=== PATIENT | female | born 1990 | race Caucasian/White ===

== ENCOUNTER 2017-09-12 07:17 | Emergency (ER) | payer BC ==
[~2017-09-12] VITALS: Ht 167.6 cm; Wt 121.0 kg
[2017-09-12 07:18] VITALS: Ht 167.6 cm; Wt 121.0 kg
[2017-09-12] MEDS ORDERED: SODIUM CHLORIDE 0.9% 1000ML 1,000 ML IV STA (07:53)
[2017-09-12 08:03] LABS: BASO % 0.3 %; BASO ABS # 0.03 K/uL (0-0.2); EOS % 1.2 %; EOS ABS # 0.13 K/uL (0-0.5); HEMATOCRIT 42.5 % (37-47); HEMOGLOBIN 14.8 g/dL (12.0-16.0); IG# 0.04 K/uL (0.00-0.02); LYMPH ABS # 2.11 K/uL (1.2-3.4); MEAN CELL VOLUME 85.7 fL (80-100); MEAN CORPUSCULAR HEMOGLOBIN 29.8 pg (25-34); MEAN CORPUSCULAR HGB CONC 34.8 g/dl (32-36); MEAN PLATELET VOLUME 9.7 fL (7.4-10.4); MONO ABS # 0.85 K/uL (0.11-0.59); NEUT % 70.1 %; PLATELET COUNT 212 K/uL (130-400); RED CELL DISTRIBUTION WIDTH CV 14.4 % (11.5-14.5); RED CELL DISTRIBUTION WIDTH SD 45.1 fL (36.4-46.3); WHITE BLOOD COUNT 10.56 K/uL (4.8-10.8)
[2017-09-12 08:09] LABS: ALBUMIN 3.7 gm/dl (3.4-5.0); CREATININE 0.83 mg/dl (0.60-1.20); POTASSIUM 3.8 mmol/L (3.5-5.1)
[2017-09-12 08:12] LABS: TOTAL PROTEIN 7.8 gm/dl (6.4-8.2)
--- NOTE | 2017-09-12 09:19 | DIAGNOSTIC IMAGING REPORT ---
ULTRASOUND RIGHT UPPER QUADRANT ABDOMEN CLINICAL HISTORY: Right upper quadrant abdominal pain. COMPARISON STUDY: Abdominal CT dated 01/14/2016. TECHNIQUE: Real-time, grayscale, and color flow sonography of the right upper quadrant of the abdomen was performed. Images are reviewed in the transverse and longitudinal planes. FINDINGS: Liver: The liver is normal in size and echotexture. There is no intrahepatic biliary ductal dilatation. The main portal vein is patent. Gallbladder: A tiny focus of adenomyomatosis is suggested in the fundal region. The gallbladder is otherwise normal in appearance. No gallstones are identified. There is no gallbladder wall thickening or pericholecystic fluid. A sonographic Marquez's sign is reportedly absent. The common bile duct measures up to 0.5 cm in diameter. Pancreas: Visualized portions of the pancreatic head and body are normal in appearance. Right kidney: Survey images of the right kidney demonstrate normal size and echotexture. There is no hydronephrosis. Ascites: None. IMPRESSION: Unremarkable sonographic assessment of the right upper quadrant. No gallstones are identified. Electronically signed by: Raj Mackenzie M.D. 09/12/2017 9:18 AM Dictated Date/Time: 09/12/2017 9:16 AM
[2017-09-12 09:30] VITALS: TEMP 36.7
[2017-09-12 10:23] VITALS: BP 115/63; PULSE 74; O2SAT 98
--- NOTE | 2017-09-12 17:15 | EMERGENCY ROOM VISIT NOTE ---
ED Visit Note First contact with patient: 07:24 Chief Complaint: Abdominal pain History of Present Illness: Ms. Servin is a 27 year-old female complaining of bilateral upper quadrant abdominal pain. Historically patient reports she has had chronic abdominal pain for the last 2- 3 years. She has been seen in the emergency department multiple times as well as her primary care provider and no cause has been identified for her pain. CTs of the abdomen have been negative, pelvic ultrasounds have been negative and a right upper quadrant ultrasound showed. Patient reports that her primary care provider has diagnosed this as GERD. She has been using Tums to control her discomfort. She reports the last year the pain seemed to improved but over the last 2 months it has returned. He reports the pain has been intermittent but is daily. She describes this cyclic pain of lasting for approximately 5-10 minutes and then self resolving. Patient reports this morning she was driving to work and she started developing bilateral upper quadrant and mid quadrant pain. She describes her discomfort as something "pushing against" her upper abdomen. She currently rates her discomfort 6/10. Her pain is radiating into her thoracic back. She has not identified any aggravating or alleviating factors related to the pain. She hasn 't taken any medications for pain prior to arrival at the hospital. She currently denies any nausea or vomiting but did report on Saturday when she was having similar symptoms that she did vomit. Additionally she has noted that she is does not have lamin diarrhea but feels like her stools are looser than normal. Patient denies fevers, chills, sweats, skin eruptions, skin color changes, upper respiratory tract symptoms, shortness of breath, chest pain, nausea, vomiting, diarrhea, constipation, rectal bleeding, black/tarry stools, urinary symptoms, hematuria, vaginal bleeding, vaginal discharge, back/flank pain. Review of Systems: As noted above in history of present illness. All body systems were reviewed and found to be negative as noted above. Past Medical History: As previously noted Current Medications: As noted above. Allergies to Medications: Patient denies. Social History: Patient is currently employed; she feels safe in her home environment; she admits to tobacco and alcohol use. Physical Examination: Vital Signs: Date Time Temp Pulse Resp B/P (MAP) Pulse Ox O2 Delivery O2 Flow Rate FiO2 09/12/17 10:23 74 16 115/63 98 09/12/17 09:42 87 09/12/17 09:30 36.7 85 16 107/68 95 Room Air 09/12/17 07:18 36.5 99 16 115/81 99 GENERAL: 27-year-old female in mild to moderate distress due to pain, nontoxic- appearing, afebrile and hemodynamically stable. NEUROLOGICAL: Awake, alert and oriented to person, place and time. Answering questions appropriately and following commands. Normal gait. Good hand eye coordination. SKIN: Warm, dry and pink. No soft tissue eruptions or trauma noted. HEENT: Atraumatic and normocephalic. PERRLA. Sclera white and conjunctiva pink. Oral cavity moist and pink. Pharynx is nonerythematous or edematous. Speech normal. No lymphadenopathy. Trachea midline. No jugular venous distention. BACK: No tenderness over the bony spine. No CVA tenderness. THORAX: Lungs sounds are clear to auscultation and equal bilaterally with symmetrical chest wall. No wheezing, rales or rhonchi. No crepitus, tenderness , subcutaneous air or deformities noted. HEART: Regular rate and rhythm. No gallops, rubs or murmurs are appreciated. ABDOMEN: Flat and soft with mild tenderness in the left upper quadrant and moderate tenderness in the right upper quadrant. Positive bowel sounds in all quadrants. No guarding, rigidity or organomegaly. EXTREMITIES: Moves all extremities well on command and with purpose. All distal neurovascular statuses are intact and equal bilaterally. ED Course: Patient is assessed as noted above. Patient's medication list was reviewed. Laboratory Testing: Test 09/12/17 07:30 09/12/17 07:48 Range/Units Urine Color YELLOW Urine Appearance CLEAR CLEAR Urine pH 5.5 4.5-7.5 Urine Specific [place] 1.017 1.000-1.030 Urine Protein NEG NEG Urine Glucose (UA) NEG NEG Urine Ketones NEG NEG Urine Occult Blood NEG NEG Urine Nitrite NEG NEG Urine Bilirubin NEG NEG Urine Urobilinogen NEG NEG Urine Leukocyte Esterase SMALL NEG Urine WBC (Auto) 1-5 0-5 /hpf Urine RBC (Auto) 5-10 0-4 /hpf Urine Hyaline Casts (Auto) 1-5 0-5 /lpf Urine Epithelial Cells (Auto) >30 0-5 /lpf Urine Bacteria (Auto) NEG NEG Urine Test NEG NEG White Blood Count 10.56 4.8-10.8 K/uL Red Blood Count 4.96 4.2-5.4 M/uL Hemoglobin 14.8 12.0-16.0 g/dL Hematocrit 42.5 37-47 % Mean Corpuscular Volume 85.7 80-100 fL Mean Corpuscular Hemoglobin 29.8 25-34 pg Mean Corpuscular Hemoglobin Concent 34.8 32-36 g/dl Platelet Count 212 130-400 K/uL Mean Platelet Volume 9.7 7.4-10.4 fL Neutrophils (%) (Auto) 70.1 % Lymphocytes (%) (Auto) 20.0 % Monocytes (%) (Auto) 8.0 % Eosinophils (%) (Auto) 1.2 % Basophils (%) (Auto) 0.3 % Neutrophils # (Auto) 7.40 1.4-6.5 K/uL Lymphocytes # (Auto) 2.11 1.2-3.4 K/uL Monocytes # (Auto) 0.85 0.11-0.59 K/uL Eosinophils # (Auto) 0.13 0-0.5 K/uL Basophils # (Auto) 0.03 0-0.2 K/uL RDW Standard Deviation 45.1 36.4-46.3 fL RDW Coefficient of Variation 14.4 11.5-14.5 % Immature Granulocyte % (Auto) 0.4 % Immature Granulocyte # (Auto) 0.04 0.00-0.02 K/uL Sodium Level 140 136-145 mmol/L Potassium Level 3.8 3.5-5.1 mmol/L Chloride Level 107 98-107 mmol/L Carbon Dioxide Level 26 21-32 mmol/L Anion Gap 7.0 3-11 mmol/L Blood Urea Nitrogen 7 7-18 mg/dl Creatinine 0.83 0.60-1.20 mg/dl Est Creatinine Clear Calc Drug Dose 133.7 ml/min Estimated GFR () 111.2 Estimated GFR (Non- 96.0 BUN/Creatinine Ratio 8.1 10-20 Random Glucose 87 70-99 mg/dl Calcium Level 9.0 8.5-10.1 mg/dl Total Bilirubin 0.4 0.2-1 mg/dl Direct Bilirubin 0.1 0-0.2 mg/dl Aspartate Amino Transf (AST/SGOT) 28 15-37 U/L Alanine Aminotransferase (ALT/SGPT) 55 12-78 U/L Alkaline Phosphatase 87 45-117 U/L Total Protein 7.8 6.4-8.2 gm/dl Albumin 3.7 3.4-5.0 gm/dl Lipase 97 73-393 U/L Gallbladder Ultrasound: Was reviewed by myself and read by the radiologist showing an unremarkable remarkable assessment of the right upper quadrant with a normal-appearing gallbladder, liver, pancreas and kidney. Patient was hydrated with normal saline; she was offered pain medications and refused. Patient was reassessed multiple times during her stay in the emergency department. Patient's case was reviewed with Dr. Gaxiola; we agreed on diagnostic approach, treatment, disposition and plan. Patient was educated about today's findings and instructed on her treatment plan ; she verbalized understanding and agreement with this plan. Clinical Impression: Upper abdominal pain. Decision-Making: Initially my differential diagnosis I considered GERD, esophagitis, esophageal rupture, pancreatitis, hepatitis, cholecystitis, gastritis and other causes. Disposition: Patient discharged home in stable condition accompanied by a male friend; prior to departure she was reassessed and subjectively reported she was feeling slightly better and rated her discomfort 4/10. Plan: Patient was encouraged to continue her current medications as prescribed. Patient was encouraged to use 650 mg of acetaminophen every 6 hours as needed for pain and to avoid NSAID medications. Patient was encouraged to follow-up with family physician for recheck and possible referral to gastroenterology for possible EGD. Patient was encouraged return ED for worsening pain, uncontrolled vomiting, bloody vomitus, bloody stools, fevers or any new/concerning symptoms.
== END 2017-09-12 10:20 | disposition home or self-care (01) ==
LOC: C.EDB 07:19
DX: R10.11 Right upper quadrant pain (principal); R10.12 Left upper quadrant pain

== ENCOUNTER 2019-05-17 06:28 | Inpatient (IN) ==
[2019-05-17] MEDS: LACTATED RINGER'S 1,000 ML IV PRN ×4 (06:58→19:57)
[2019-05-17] MEDS ORDERED: OXYTOCIN 30 UNITS/500 ML BAG IV PRN ×3 (07:29→22:52)
[2019-05-17 08:01] LABS: Hematocrit (blood only) 32.6 % (37-47); Hemoglobin 10.7 g/dL (12.0-16.0); Mean Corpuscular Hemoglobin 27.9 pg (25-34); Mean Corpuscular Volume 85.1 fL (80-100); Mean Platelet Volume 11.1 fL (7.4-10.4); Platelet Count 158 K/uL (130-400); RDW Coefficient of Variation 16.4 % (11.5-14.5); RDW Standard Deviation 50.5 fL (36.4-46.3); Red Blood Count 3.83 M/uL (4.2-5.4); White Blood Count 8.37 K/uL (4.8-10.8)
[2019-05-17 08:02] LABS: Mean Corpuscular Hgb Conc 32.8 g/dL (32-36)
--- NOTE | 2019-05-17 08:07 | Obstetrical Progress Note ---
Date of Service May 17, 2019 Subjective Admit orders 29 F P2032 at 36.0 weeks admitted with SROM clear fluid di-di twin gestation. Mild contractions noted by patient and on monitor. Cervical exam by nurse on admission confirms ROM and found to be 3 cm. Bedside ultrasound done confirms both twins to be vertex side by side. On exam she denies headache or blurred vision. Bilateral edema noted in lower extremities. Abdomen is soft and non- tender. FHT Cat 1 A/B. GBS is pending and lab to call up shortly with results. Patient is planning vaginal delivery of twins and we will deliver in the OR with double set up. Results & Data Vital Signs (Past 12 Hours) Vital Signs Temp Pulse Resp BP 05/17/19 06:37 36.9 C 109 H 18 127/78
--- NOTE | 2019-05-17 09:24 | Obstetrical Progress Note ---
Date of Service May 17, 2019 Physical Exam Genitourinary: OB Exam Abdomen: + vertex Manual OB Exam: + cervical dilation 2 cm and 3 cm, + cervical effacement 50%, + station -2 and + amniotic fluid clear OB Exam Monitor Tracing: + external FHT monitor used, + external uterine monitor used, + category I and + normal FHT variability FHT A/B Cat 1 cervix remains posterior/firm Results & Data Vital Signs (Past 12 Hours) Vital Signs Temp Pulse Resp BP 05/17/19 08:09 36.8 C 98 H 20 108/72 05/17/19 06:37 36.9 C 109 H 18 127/78
--- NOTE | 2019-05-17 10:03 | Anesthesiology Consultation ---
Date of Service May 17, 2019 Assessment & Plan (1) Encounter for pre-operative examination: Chart Review Chart Review: Acceptable Risk for Labor Epidural Consults Requested none ASA ASA3 Proposed Anesthesia Anesthesia Type: Labor Epidural Risk / Benefits Reviewed With: PT / POA / Parent / Guardian, Accepts Plan and Informed Consent Obtained Additional Comments: Pt understands the possibility of receiving general anesthesia in the event that she needed a . History Height/Weight Height: 5 ft 6 in Weight: 134.717 kg Allergies Allergy/AdvReac Type Severity Reaction Status Date / Time No Known Allergies Allergy Verified 05/15/19 16:17 Medications Home Medications Medication Instructions Recorded Confirmed Last Taken PNV cmb#95-ferrous fumarate-FA 1 tab PO DAILY 05/15/19 05/17/19 05/16/19 21:00 [] aspirin 81 mg PO DAILY 05/15/19 05/17/19 05/16/19 21:00 cholecalciferol (vitamin D3) 2,000 unit PO DAILY 05/15/19 05/17/19 05/16/19 21:00 [Vitamin D3] ferrous sulfate 325 mg PO DAILY 05/15/19 05/17/19 05/16/19 21:00 nitrofurantoin monohyd/m-cryst 100 mg PO BID 7 Days #14 cap 05/15/19 05/17/19 05/16/19 21:00 [Macrobid] ranitidine HCl [Zantac Maximum 150 mg PO DAILY 05/15/19 05/17/19 05/16/19 21:00 Strength] Active Medications Generic Name Dose Route Start Last Admin Trade Name Freq PRN Reason Stop Dose Admin Lactated Ringer's 1,000 mls @ 125 mls/hr 05/17/19 07:29 05/17/19 06:58 Lr IV 05/19/19 07:28 125 mls/hr .Q8H PRN Administration L&D Protocol Protocol Past Medical History Medical History Anemia 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 H/O wisdom tooth extraction History of abnormal cervical Pap smear History of depression Exercise / Class Metabolic Activity II 4-5 Yardwork/Stairs/Walk up hill Past Surgical History Surgical History S/P wisdom tooth extraction Past Anesthesia History No Hx of Anesthesia Complications and No Family Hx of Anesthesia Complications History of PONV No Hx of PONV and No Hx of Motion Sickness Social History Smoking Status: Former smoker Do You Dip or Chew Tobacco: No Hx Alcohol Use: No Hx Substance Use: No Physical Exam Vital Signs Last Vital Signs Temp 98.2 F 05/17/19 08:09 Pulse 98 H 05/17/19 08:09 Resp 20 05/17/19 08:09 BP 108/72 05/17/19 08:09 ENMT Mouth: no dentition abnormality Thyromental Distance: > or= 3.5 Finger Breadths Mallampati Class: II Neck normal visual inspection Respiratory normal respiratory effort Auscultation: lungs clear to auscultation bilaterally Cardiovascular Rate/Rhythm: regular rate and regular rhythm Testing Laboratory Results 05/17/19 07:49 05/17/19 07:53
--- NOTE | 2019-05-17 13:34 | Obstetrical Progress Note ---
Date of Service May 17, 2019 Physical Exam Genitourinary: Manual OB Exam: + cervical dilation 4 cm, + cervical effacement 70% and + station -2 OB Exam Monitor Tracing: + external FHT monitor used, + scalp electrode used, + external uterine monitor used, + category I and + normal FHT variability some bloody show pain tolerable does not want epidural yet Results & Data Vital Signs (Past 12 Hours) Vital Signs Temp Pulse Resp BP 05/17/19 12:01 104 H 127/64 05/17/19 12:00 36.8 C 20 05/17/19 10:33 36.7 C 92 H 20 122/72 05/17/19 08:09 36.8 C 98 H 20 108/72 05/17/19 06:37 36.9 C 109 H 18 127/78
[2019-05-17] MEDS ORDERED: fentaNYL citrate 100 MCG/2 ML VIAL ONE (14:13)
[2019-05-17] MEDS ORDERED: BUPIVACAINE 0.25% 30 ML VIAL ONE (14:13)
[2019-05-17] MEDS ORDERED: ePHEDrine sulfate 50 MG/ML AMP ONE (14:13)
[2019-05-17] MEDS ORDERED: fentaNYL 2MCG/ML ROPIV 1.25MG/ML 100 ML BAG EPI ONE (14:14)
[2019-05-17] MEDS ORDERED: NALBUPHINE HCL INJ 10 MG/ML AMP IV PRN (14:25)
[2019-05-17] MEDS ORDERED: fentaNYL 2MCG/ML ROPIV 1.25MG/ML 100 ML BAG EPI PRN (14:25)
[2019-05-17] MEDS ORDERED: DiphenhydrAMINE HCL 50 MG/ML VIAL IV PRN (14:25)
[2019-05-17] MEDS ORDERED: NALOXONE HCL 0.4 MG/1 ML VIAL/CARP IV PRN (14:25)
[2019-05-17] MEDS ORDERED: ePHEDrine sulfate 50 MG/ML AMP IV PRN (14:25)
[2019-05-17] MEDS ORDERED: NALOXONE HCL 1 MG in SODIUM CHLORIDE 0.9% 1000ML 1,000 ML IV PRN (14:25)
[2019-05-17] MEDS ORDERED: ONDANSETRON INJ 2 MG/ML 2 ML VIAL IV PRN (14:25)
--- NOTE | 2019-05-17 15:37 | Obstetrical Progress Note ---
Date of Service May 17, 2019 Physical Exam Genitourinary: Manual OB Exam: + cervical dilation 4 cm, + cervical effacement 80% and + station -2 OB Exam Monitor Tracing: + external FHT monitor used, + external uterine monitor used, + category I and + normal FHT variability epidural in place will start Oxytocin to augment contractions Results & Data Vital Signs (Past 12 Hours) Vital Signs Temp Pulse Resp BP Pulse Ox 05/17/19 15:33 99 H 95 05/17/19 15:30 100 H 20 109/63 05/17/19 15:29 101 H 94 05/17/19 15:28 96 H 94 05/17/19 15:23 98 H 96 05/17/19 15:22 88 94 05/17/19 15:18 90 95 05/17/19 15:15 90 111/67 05/17/19 15:13 84 97 05/17/19 15:08 98 H 96 05/17/19 15:03 86 96 05/17/19 15:00 93 H 20 110/58 L 05/17/19 14:58 87 120/59 L 98 05/17/19 14:56 79 117/68 05/17/19 14:54 95 H 114/69 05/17/19 14:53 92 H 95 05/17/19 14:51 91 H 110/60 05/17/19 14:50 18 05/17/19 14:49 88 96/54 L 05/17/19 14:48 94 H 93/53 L 96 05/17/19 14:45 113 H 99/52 L 05/17/19 14:43 106 H 20 98 05/17/19 14:42 123 H 107/55 L 05/17/19 14:40 111 H 93 05/17/19 14:38 102 H 98 05/17/19 14:33 101 H 96 05/17/19 14:28 101 H 128/76 99 05/17/19 14:23 101 H 99 05/17/19 14:18 108 H 98 05/17/19 14:03 95 H 114/71 05/17/19 14:00 37.0 C 20 05/17/19 12:01 104 H 127/64 05/17/19 12:00 36.8 C 20 05/17/19 10:33 36.7 C 92 H 20 122/72 05/17/19 08:09 36.8 C 98 H 20 108/72 05/17/19 06:37 36.9 C 109 H 18 127/78
--- NOTE | 2019-05-17 18:20 | Obstetrical Progress Note ---
Date of Service May 17, 2019 Physical Exam Genitourinary: Manual OB Exam: + cervical dilation 6 cm, + cervical effacement 90% and + station -1 OB Exam Monitor Tracing: + external FHT monitor used, + external uterine monitor used and + category I Results & Data Vital Signs (Past 12 Hours) Vital Signs Temp Pulse Resp BP Pulse Ox 05/17/19 18:17 94 H 112/62 05/17/19 18:13 95 H 98 05/17/19 18:08 99 H 98 05/17/19 18:03 103 H 97 05/17/19 18:01 103 H 126/57 L 05/17/19 18:00 37.1 C 20 05/17/19 17:58 104 H 96 05/17/19 17:53 90 97 05/17/19 17:48 92 H 98 05/17/19 17:46 105 H 106/53 L 05/17/19 17:43 99 H 97 05/17/19 17:38 105 H 96 05/17/19 17:33 108 H 97 05/17/19 17:31 109 H 136/72 05/17/19 17:30 18 05/17/19 17:28 113 H 97 05/17/19 17:23 107 H 97 05/17/19 17:18 115 H 97 05/17/19 17:16 107 H 117/70 05/17/19 17:13 108 H 96 05/17/19 17:08 102 H 96 05/17/19 17:03 111 H 97 05/17/19 17:00 121 H 20 122/60 05/17/19 16:58 106 H 96 05/17/19 16:53 112 H 97 05/17/19 16:48 107 H 97 05/17/19 16:46 97 H 123/67 05/17/19 16:45 99 H 118/62 05/17/19 16:43 97 H 94 05/17/19 16:38 97 H 95 05/17/19 16:33 105 H 96 05/17/19 16:30 100 H 20 113/65 05/17/19 16:28 104 H 96 05/17/19 16:23 102 H 97 05/17/19 16:18 102 H 95 05/17/19 16:16 96 H 115/72 05/17/19 16:13 100 H 96 05/17/19 16:08 101 H 128/76 96 05/17/19 16:03 103 H 98 05/17/19 16:00 37.0 C 20 05/17/19 15:58 88 96 05/17/19 15:53 96 H 97 05/17/19 15:48 88 96 05/17/19 15:46 97 H 124/68 05/17/19 15:43 91 H 97 05/17/19 15:38 93 H 96 05/17/19 15:33 99 H 95 05/17/19 15:30 100 H 20 109/63 05/17/19 15:29 101 H 94 05/17/19 15:28 96 H 94 05/17/19 15:23 98 H 96 05/17/19 15:22 88 94 05/17/19 15:18 90 95 05/17/19 15:15 90 111/67 05/17/19 15:13 84 97 05/17/19 15:08 98 H 96 05/17/19 15:03 86 96 05/17/19 15:00 93 H 20 110/58 L 05/17/19 14:58 87 120/59 L 98 05/17/19 14:56 79 117/68 05/17/19 14:54 95 H 114/69 05/17/19 14:53 92 H 95 05/17/19 14:51 91 H 110/60 05/17/19 14:50 18 05/17/19 14:49 88 96/54 L 05/17/19 14:48 94 H 93/53 L 96 05/17/19 14:45 113 H 99/52 L 05/17/19 14:43 106 H 20 98 05/17/19 14:42 123 H 107/55 L 05/17/19 14:40 111 H 93 05/17/19 14:38 102 H 98 05/17/19 14:33 101 H 96 05/17/19 14:28 101 H 128/76 99 05/17/19 14:23 101 H 99 05/17/19 14:18 108 H 98 05/17/19 14:03 95 H 114/71 05/17/19 14:00 37.0 C 20 05/17/19 12:01 104 H 127/64 05/17/19 12:00 36.8 C 20 05/17/19 10:33 36.7 C 92 H 20 122/72 05/17/19 08:09 36.8 C 98 H 20 108/72 05/17/19 06:37 36.9 C 109 H 18 127/78
--- NOTE | 2019-05-17 20:05 | Obstetrical Progress Note ---
Date of Service May 17, 2019 Physical Exam Genitourinary: Manual OB Exam: + cervical dilation 8 cm, + cervical effacement 100% and + station -1 OB Exam Monitor Tracing: + external FHT monitor used, + external uterine monitor used and + category I Results & Data Vital Signs (Past 12 Hours) Vital Signs Temp Pulse Resp BP Pulse Ox 05/17/19 20:03 108 H 98 05/17/19 20:01 111 H 123/62 05/17/19 19:58 106 H 97 05/17/19 19:53 109 H 96 05/17/19 19:48 105 H 97 05/17/19 19:46 103 H 127/77 05/17/19 19:43 113 H 97 05/17/19 19:38 106 H 97 05/17/19 19:33 105 H 96 05/17/19 19:31 116 H 126/73 05/17/19 19:30 18 05/17/19 19:28 108 H 96 05/17/19 19:23 104 H 97 05/17/19 19:18 113 H 97 05/17/19 19:15 111 H 128/79 05/17/19 19:13 105 H 97 05/17/19 19:08 114 H 98 05/17/19 19:03 119 H 98 05/17/19 19:00 109 H 20 137/85 05/17/19 18:58 110 H 98 05/17/19 18:53 110 H 96 05/17/19 18:48 106 H 96 05/17/19 18:47 108 H 125/79 05/17/19 18:43 105 H 97 05/17/19 18:38 105 H 97 05/17/19 18:33 107 H 96 05/17/19 18:31 108 H 139/83 05/17/19 18:28 103 H 97 05/17/19 18:25 20 05/17/19 18:23 99 H 98 05/17/19 18:18 107 H 98 05/17/19 18:17 94 H 112/62 05/17/19 18:13 95 H 98 05/17/19 18:08 99 H 98 05/17/19 18:03 103 H 97 05/17/19 18:01 103 H 126/57 L 05/17/19 18:00 37.1 C 20 05/17/19 17:58 104 H 96 05/17/19 17:53 90 97 05/17/19 17:48 92 H 98 05/17/19 17:46 105 H 106/53 L 05/17/19 17:43 99 H 97 05/17/19 17:38 105 H 96 05/17/19 17:33 108 H 97 05/17/19 17:31 109 H 136/72 05/17/19 17:30 18 05/17/19 17:28 113 H 97 05/17/19 17:23 107 H 97 05/17/19 17:18 115 H 97 05/17/19 17:16 107 H 117/70 05/17/19 17:13 108 H 96 05/17/19 17:08 102 H 96 05/17/19 17:03 111 H 97 05/17/19 17:00 121 H 20 122/60 05/17/19 16:58 106 H 96 05/17/19 16:53 112 H 97 05/17/19 16:48 107 H 97 05/17/19 16:46 97 H 123/67 05/17/19 16:45 99 H 118/62 05/17/19 16:43 97 H 94 05/17/19 16:38 97 H 95 05/17/19 16:33 105 H 96 05/17/19 16:30 100 H 20 113/65 05/17/19 16:28 104 H 96 05/17/19 16:23 102 H 97 05/17/19 16:18 102 H 95 05/17/19 16:16 96 H 115/72 05/17/19 16:13 100 H 96 05/17/19 16:08 101 H 128/76 96 05/17/19 16:03 103 H 98 05/17/19 16:00 37.0 C 20 05/17/19 15:58 88 96 05/17/19 15:53 96 H 97 05/17/19 15:48 88 96 05/17/19 15:46 97 H 124/68 05/17/19 15:43 91 H 97 05/17/19 15:38 93 H 96 05/17/19 15:33 99 H 95 05/17/19 15:30 100 H 20 109/63 05/17/19 15:29 101 H 94 05/17/19 15:28 96 H 94 10/06/19 15:23 98 H 96 05/17/19 15:22 88 94 05/17/19 15:18 90 95 05/17/19 15:15 90 111/67 05/17/19 15:13 84 97 05/17/19 15:08 98 H 96 05/17/19 15:03 86 96 05/17/19 15:00 93 H 20 110/58 L 05/17/19 14:58 87 120/59 L 98 05/17/19 14:56 79 117/68 05/17/19 14:54 95 H 114/69 05/17/19 14:53 92 H 95 05/17/19 14:51 91 H 110/60 05/17/19 14:50 18 05/17/19 14:49 88 96/54 L 05/17/19 14:48 94 H 93/53 L 96 05/17/19 14:45 113 H 99/52 L 05/17/19 14:43 106 H 20 98 05/17/19 14:42 123 H 107/55 L 05/17/19 14:40 111 H 93 05/17/19 14:38 102 H 98 05/17/19 14:33 101 H 96 05/17/19 14:28 101 H 128/76 99 05/17/19 14:23 101 H 99 05/17/19 14:18 108 H 98 05/17/19 14:03 95 H 114/71 05/17/19 14:00 37.0 C 20 05/17/19 12:01 104 H 127/64 05/17/19 12:00 36.8 C 20 05/17/19 10:33 36.7 C 92 H 20 122/72 05/17/19 08:09 36.8 C 98 H 20 108/72
--- NOTE | 2019-05-17 21:36 | Obstetrical Progress Note ---
Date of Service May 17, 2019 Physical Exam Genitourinary: Manual OB Exam: + cervical dilation 9 cm, + cervical effacement 100% and + station 0 OB Exam Monitor Tracing: + external FHT monitor used, + external uterine monitor used and + category I Patient with anterior lip will bring back to OR in anticipation she will push shortly anesthesia and pediatrics notified Results & Data Vital Signs (Past 12 Hours) Vital Signs Temp Pulse Resp BP Pulse Ox 05/17/19 21:33 113 H 116/71 98 05/17/19 21:28 109 H 98 05/17/19 21:23 107 H 98 05/17/19 21:18 107 H 97 05/17/19 21:16 110 H 129/75 05/17/19 21:13 118 H 96 05/17/19 21:08 123 H 97 05/17/19 21:03 112 H 98 05/17/19 21:01 112 H 130/73 05/17/19 21:00 20 05/17/19 20:58 114 H 96 05/17/19 20:53 109 H 97 05/17/19 20:48 109 H 98 05/17/19 20:46 112 H 125/73 05/17/19 20:43 105 H 98 05/17/19 20:38 115 H 96 05/17/19 20:33 112 H 97 05/17/19 20:32 111 H 128/70 05/17/19 20:30 18 05/17/19 20:28 117 H 97 05/17/19 20:23 108 H 98 05/17/19 20:18 111 H 98 05/17/19 20:17 122 H 127/61 05/17/19 20:13 101 H 96 05/17/19 20:08 110 H 97 05/17/19 20:03 108 H 98 05/17/19 20:01 111 H 123/62 05/17/19 20:00 37.0 C 20 05/17/19 19:58 106 H 97 05/17/19 19:53 109 H 96 05/17/19 19:48 105 H 97 05/17/19 19:46 103 H 127/77 05/17/19 19:43 113 H 97 05/17/19 19:38 106 H 97 05/17/19 19:33 105 H 96 05/17/19 19:31 116 H 126/73 05/17/19 19:30 18 05/17/19 19:28 108 H 96 05/17/19 19:23 104 H 97 05/17/19 19:18 113 H 97 05/17/19 19:15 111 H 128/79 05/17/19 19:13 105 H 97 05/17/19 19:08 114 H 98 05/17/19 19:03 119 H 98 05/17/19 19:00 109 H 20 137/85 05/17/19 18:58 110 H 98 05/17/19 18:53 110 H 96 05/17/19 18:48 106 H 96 05/17/19 18:47 108 H 125/79 05/17/19 18:43 105 H 97 05/17/19 18:38 105 H 97 05/17/19 18:33 107 H 96 05/17/19 18:31 108 H 139/83 05/17/19 18:28 103 H 97 05/17/19 18:25 20 05/17/19 18:23 99 H 98 05/17/19 18:18 107 H 98 05/17/19 18:17 94 H 112/62 05/17/19 18:13 95 H 98 05/17/19 18:08 99 H 98 05/17/19 18:03 103 H 97 05/17/19 18:01 103 H 126/57 L 05/17/19 18:00 37.1 C 20 05/17/19 17:58 104 H 96 05/17/19 17:53 90 97 05/17/19 17:48 92 H 98 05/17/19 17:46 105 H 106/53 L 05/17/19 17:43 99 H 97 05/17/19 17:38 105 H 96 05/17/19 17:33 108 H 97 05/17/19 17:31 109 H 136/72 05/17/19 17:30 18 05/17/19 17:28 113 H 97 05/17/19 17:23 107 H 97 05/17/19 17:18 115 H 97 05/17/19 17:16 107 H 117/70 05/17/19 17:13 108 H 96 05/17/19 17:08 102 H 96 05/17/19 17:03 111 H 97 05/17/19 17:00 121 H 20 122/60 05/17/19 16:58 106 H 96 05/17/19 16:53 112 H 97 05/17/19 16:48 107 H 97 05/17/19 16:46 97 H 123/67 05/17/19 16:45 99 H 118/62 05/17/19 16:43 97 H 94 05/17/19 16:38 97 H 95 05/17/19 16:33 105 H 96 05/17/19 16:30 100 H 20 113/65 05/17/19 16:28 104 H 96 05/17/19 16:23 102 H 97 05/17/19 16:18 102 H 95 05/17/19 16:16 96 H 115/72 05/17/19 16:13 100 H 96 05/17/19 16:08 101 H 128/76 96 05/17/19 16:03 103 H 98 05/17/19 16:00 37.0 C 20 05/17/19 15:58 88 96 05/17/19 15:53 96 H 97 05/17/19 15:48 88 96 05/17/19 15:46 97 H 124/68 05/17/19 15:43 91 H 97 05/17/19 15:38 93 H 96 05/17/19 15:33 99 H 95 05/17/19 15:30 100 H 20 109/63 05/17/19 15:29 101 H 94 05/17/19 15:28 96 H 94 05/17/19 15:23 98 H 96 05/17/19 15:22 88 94 05/17/19 15:18 90 95 05/17/19 15:15 90 111/67 05/17/19 15:13 84 97 05/17/19 15:08 98 H 96 05/17/19 15:03 86 96 05/17/19 15:00 93 H 20 110/58 L 05/17/19 14:58 87 120/59 L 98 05/17/19 14:56 79 117/68 05/17/19 14:54 95 H 114/69 05/17/19 14:53 92 H 95 05/17/19 14:51 91 H 110/60 05/17/19 14:50 18 05/17/19 14:49 88 96/54 L 05/17/19 14:48 94 H 93/53 L 96 05/17/19 14:45 113 H 99/52 L 05/17/19 14:43 106 H 20 98 05/17/19 14:42 123 H 107/55 L 05/17/19 14:40 111 H 93 05/17/19 14:38 102 H 98 05/17/19 14:33 101 H 96 05/17/19 14:28 101 H 128/76 99 05/17/19 14:23 101 H 99 05/17/19 14:18 108 H 98 05/17/19 14:03 95 H 114/71 05/17/19 14:00 37.0 C 20 05/17/19 12:01 104 H 127/64 05/17/19 12:00 36.8 C 20 05/17/19 10:33 36.7 C 92 H 20 122/72
[2019-05-17] MEDS ORDERED: miSOPROStoL 200 MCG TAB ONE (22:41)
[2019-05-17] MEDS ORDERED: DIPHTHERIA/TETANUS/PERTUSSIS 0.5 ML SYR/VIAL IM ONE (22:52)
[2019-05-17] MEDS ORDERED: SUPERCREAM 0.870% 15 GM JAR EXT PRN (22:52)
[2019-05-17] MEDS ORDERED: ACETAMINOPHEN 325 MG TAB PO PRN (22:52)
[2019-05-17] MEDS ORDERED: HYDROCORTISONE ACETATE 25 MG SUPP PR PRN (22:52)
[2019-05-17] MEDS ORDERED: BENZOCAINE 20% AER SPR 82.5 GM CAN EXT PRN (22:52)
[2019-05-17] MEDS ORDERED: miSOPROStoL 200 MCG TAB PR ONE (22:52)
[2019-05-17] MEDS ORDERED: CALCIUM CARBONATE 500 MG CHEWABLE TAB PO PRN (22:55)
--- NOTE | 2019-05-17 23:04 | Delivery Summary ---
Vaginal Delivery Summary Date of Service May 17, 2019 Vaginal Delivery Summary Delivery Note live twin A male over intact perineum with delayed cord clamping and Apgars 8/9 weight 6 lbs. 14 oz. followed by ultrasound of baby B found to be in vertex position maternal left. AROM of baby B with clear fluid followed by pushing and then delivery of twin B female with tight nuchal cord x1 with Apgars 2/9 weight 8 lbs. Placentas delivered spontaneously and intact and labeled placenta A with cord clamp. Cord gas done on twin B. Uterus firm below umbilicus and Cytotec 1000 mcg placed rectally. No tears. EBL 250 ml. Final spomge and instrument count are correct. Mom to recovery room in stable condition and babies to nursery in stable condition.
[2019-05-17 23:06] LABS: Base Excess Cord Venous Blood -1.7 mEq/L (-7.7-1.9); Cord Venous Blood HCO3 25 mmol/L (18.4-26.8); Cord Venous Blood PCO2 51 mmHg (30.4-57.2); Cord Venous Blood PO2 23 mmHg (14.1-43.3); Cord Venous Blood pH 7.31 (7.20-7.44)
[2019-05-17 23:07] LABS: O2 Saturation Cord Venous Bld < 60.0 % (<68)
[2019-05-17 23:11] LABS: Base Excess Cord Arterial Bld -5.1 mEq/L (-9-1.8); CO2 Cord Arterial Blood 81 mmHg (39.1-73.5); HCO3 Cord Arterial Blood 26 mmol/L (19.7-28.5); pH Cord Arterial Blood 7.13 (7.1-7.38)
[2019-05-17 23:12] LABS: Oxygen Sat Cord Arterial Blood < 60.0 % (<60)
--- NOTE | 2019-05-17 23:41 | Anesthesia Procedure Note ---
Date of Service May 17, 2019 Anesthesia Post Epidural Note Vital Signs Vital Signs: Temp Pulse Resp BP Pulse Ox 36.9 C 108 H 20 141/70 H 96 05/17/19 21:30 05/17/19 23:34 05/17/19 21:30 05/17/19 23:34 05/17/19 21:48 Pain Intensity Abdomen: Pain Intensity: 4 Notes Mental Status: alert / awake / arousable and participated in evaluation Nausea / Vomiting: adequately controlled Pain: adequately controlled Airway Patency, RR, SpO2: stable & adequate BP & HR: stable & adequate Hydration State: stable & adequate Neuraxial Anesthesia: was administered and sensory block is resolving Anesthetic Complications: no major complications apparent and Pt Satisfied with anesthetic care Epidural: Removed without complications and With tip intact Notes: Epidural site clean, dry and intact. Mild edema and bruising at insertion site. Pt instructed to request anesthesia if she has residual lower extremity numbness or if she develops lower extremity pain or weakness, back pain or headache.
[2019-05-18] MEDS: IBUPROFEN 600 MG TAB PO PRN ×4 (01:32→19:29)
[2019-05-18 06:36] LABS: Hematocrit (blood only) 29.8 % (37-47); Hemoglobin 9.9 g/dL (12.0-16.0); Mean Corpuscular Hemoglobin 28.3 pg (25-34); Mean Corpuscular Hgb Conc 33.2 g/dL (32-36); Mean Corpuscular Volume 85.1 fL (80-100); Mean Platelet Volume 10.7 fL (7.4-10.4); Platelet Count 150 K/uL (130-400); RDW Coefficient of Variation 16.6 % (11.5-14.5); White Blood Count 13.05 K/uL (4.8-10.8)
[2019-05-18] MEDS ORDERED: FERROUS SULFATE 325 MG TAB PO SCH (08:00)
[2019-05-18] MEDS ORDERED: PRENATAL VITAMIN 1 TAB PO SCH (08:00)
--- NOTE | 2019-05-18 08:41 | Obstetrical Progress Note ---
Date of Service May 18, 2019 Assessment & Plan (1) Twin delivered vaginally: Twin vaginal delivery pt doing well anticipate home delivery tomorrow Subjective Ambulation: ambulating normally Voiding: no voiding problems Passing Gas:: Yes Diet Tolerance:: regular diet Lochia:: Small Feeding Type:: breast feeding Review of Systems All systems reviewed & are unremarkable except as noted in HPI & below Physical Exam Constitutional WD/WN, vitals as above well developed and well nourished Eyes PERRL, conjunctivae normal, anicteric sclerae Neck trachea midline, no thyromegaly Respiratory normal respiratory effort, lungs clear to auscultation Auscultation: no crackles, no rales and no wheezes Cardiovascular RRR, no murmur, no edema Gastrointestinal (Abdomen) normal bowel sounds, soft, nontender, no hepatosplenomegaly Uterus is below umbilicus Musculoskeletal no cyanosis or clubbing, extremities motor strength 5/5 Skin no rashes, warm and dry Neurologic patellar DTR's 2+ bilat, sensation intact Psychiatric A+Ox3, euthymic affect Genitourinary normal external appearance Results & Data Vital Signs (Past 12 Hours) Vital Signs Temp Pulse Pulse Pulse Resp BP BP 05/18/19 08:30 36.6 C 90 16 116/77 05/18/19 04:03 37.2 C 107 H 16 104/69 05/18/19 01:25 37.2 C 107 H 18 131/78 05/18/19 01:05 37.0 C 116 H 18 120/68 05/18/19 00:34 111 H 18 126/66 05/18/19 00:19 112 H 20 127/69 05/18/19 00:04 117 H 18 120/64 05/17/19 23:49 104 H 16 135/72 05/17/19 23:34 108 H 20 141/70 H 05/17/19 23:19 104 H 18 126/66 05/17/19 23:04 110 H 20 126/67 05/17/19 22:48 36.9 C 110 H 18 127/73 05/17/19 21:48 109 H 05/17/19 21:47 111 H 133/81 05/17/19 21:43 103 H 05/17/19 21:38 110 H 05/17/19 21:33 113 H 116/71 05/17/19 21:30 36.9 C 20 05/17/19 21:28 109 H 05/17/19 21:23 107 H 05/17/19 21:18 107 H 05/17/19 21:16 110 H 129/75 05/17/19 21:13 118 H 05/17/19 21:08 123 H 05/17/19 21:03 112 H 05/17/19 21:01 112 H 130/73 05/17/19 21:00 20 05/17/19 20:58 114 H 05/17/19 20:53 109 H 05/17/19 20:48 109 H 05/17/19 20:46 112 H 125/73 05/17/19 20:43 105 H Pulse Ox 05/18/19 08:30 97 05/18/19 04:03 96 05/18/19 01:25 96 05/18/19 01:05 05/18/19 00:34 05/18/19 00:19 05/18/19 00:04 05/17/19 23:49 05/17/19 23:34 05/17/19 23:19 05/17/19 23:04 05/17/19 22:48 05/17/19 21:48 96 05/17/19 21:47 05/17/19 21:43 98 05/17/19 21:38 97 05/17/19 21:33 98 05/17/19 21:30 05/17/19 21:28 98 05/17/19 21:23 98 05/17/19 21:18 97 05/17/19 21:16 05/17/19 21:13 96 05/17/19 21:08 97 05/17/19 21:03 98 05/17/19 21:01 05/17/19 21:00 05/17/19 20:58 96 05/17/19 20:53 97 05/17/19 20:48 98 05/17/19 20:46 05/17/19 20:43 98
[2019-05-18] MEDS ORDERED: CHOLECALCIFEROL 1,000 UNITS TAB PO SCH (09:00)
[2019-05-18] MEDS ORDERED: NON-FORMULARY MEDICATION (Pnv Cmb#95-Ferrous Fumarate-Fa [Prenatal] 1 TAB) PO SCH (09:00)
[2019-05-18] MEDS: DOCUSATE SODIUM 100 MG CAP PO SCH ×2 (09:50→21:00)
[2019-05-18] MEDS ORDERED: bisacodyL 5 MG TABEC PO SCH (20:00)
[2019-05-19 06:53] LABS: Hematocrit (blood only) 29.5 % (37-47); Hemoglobin 9.4 g/dL (12.0-16.0)
[2019-05-19] MEDS ORDERED: bisacodyL 10 MG SUPP PR PRN (07:00)
--- NOTE | 2019-05-19 09:51 | Obstetrical Progress Note ---
Date of Service May 19, 2019 Subjective doing fine out of bed and ambulating well tolerating diet Physical Exam Constitutional: WD/WN, vitals as above comfortable abdomen soft and non- tender fundus firm some bilateral lower extremity edema neg Randall's patient for discharge follow up in 3 weeks in office Results & Data Vital Signs (Past 12 Hours) Vital Signs Temp Pulse Resp BP 05/19/19 08:30 36.7 C 89 18 115/78
== END 2019-05-19 12:10 | disposition home or self-care (01) | DRG 807 ==
LOC: OPB 06:28 → 4S1 06:30 → 4S2 05-18 01:12